=== PATIENT | female | born 1990 | race Caucasian/White ===

== ENCOUNTER 2020-09-23 08:41 | Emergency (ER) | payer BC ==
[2020-09-23 09:36] LABS: #Eosinphils 0.1 thou/uL (0.0-0.7); #Lymphocytes 1.5 thou/uL (1.20-3.40); #Monocytes 0.3 thou/uL (0.11-0.59); #Neutrophils 4.7 thou/uL (1.40-6.50); %Basophils 0.2 % (0.0-1.0); %Eosinophils 0.9 % (0.0-10.0); %Lymphocytes 22.2 % (21.0-51.0); %Monocytes 4.6 % (0.0-10.0); %Neutrophils 72.1 % (42.0-75.0); Hemoglobin 12.5 g/dL (12.0-16.0); Mean Corpuscular HGB CONC 34.8 g/dL (32.0-36.0); Mean Corpuscular Hemoglobin 30.6 pg (27.0-31.0); Mean Corpuscular Volume 87.9 fL (78.0-98.0); Mean Platelet Volume 7.5 fL (7.4-10.4); Platelet Count 179 thou/uL (130-400); RBC Distribution Width 12.2 % (11.5-14.5); Red Blood Cell (RBC) Count 4.08 mill/uL (4.20-5.40); White Blood Cell (WBC) Count 6.5 thou/uL (4.8-10.8)
--- NOTE | 2020-09-23 12:02 | ULT ---
LIMITED OB ULTRASOUND: Date: 09/23/2020 HISTORY: female with vaginal bleeding that started this morning. TECHNIQUE: Multiplanar Hernandez scale and color Doppler images were obtained in a limited ultrasound. FINDINGS: There is a single, live intrauterine , with heart rate of 152 beats/minute. The placenta is posterior in location without evidence of placenta previa or placental abruption. FARZANA is 13.8 cm, which is normal. Neither maternal adnexal structure could be visualized. IMPRESSION: Single, live intrauterine . POS: [facility]
== END 2020-09-23 10:40 | disposition home or self-care (01) ==
LOC: ERS 08:41
DX: O20.9 Hemorrhage in early pregnancy, unspecified (principal); Z3A.19 19 weeks gestation of pregnancy
CPT/HCPCS: 36415; 76815; 84702; 85025; 86900; 86901